=== PATIENT | female | born 1970 | race Caucasian/White ===

== ENCOUNTER 2017-08-07 11:52 | Emergency (ER) | payer BC, OTHER ==
[~2017-08-07] VITALS: Ht 162.6 cm; Wt 77.0 kg
[2017-08-07 11:57] VITALS: BP 108/59; PULSE 78; RESP 18; TEMP 97.8; O2SAT 99
--- NOTE | 2017-08-07 12:25 | PD ---
HPI Chief Complaint: Medical Aide Problem/Complaint Time Seen by Provider: 12:06 Travel History International Travel<30 days: No Contact w/Intl Traveler<30days: No Traveled to known affect area: No History of Present Illness HPI 47yo F with PMH of uterine fibroid, nephrolithiasis presents to the ED with c/o pain for 3 days. Said pain radiates from back to lower abdomen and is cramping and feels like contractions. Said she is on day 3 of her menstrual period and has been having worsening pain during menstruation for the last year. Associated with nausea. No exacerbating or alleviating factors. Denies any fever, chest pain, sob, dysuria, vaginal discharge. Said she had ultrasound many years ago that showed a fibroid but has not had imaging for this in the last year. Pt had CT of her kidneys last week to evaluate for kidney stone and everything was fine. Said this does not feel like her kidney stone. PFSH Past Medical History ?: Not Social History Tobacco Use: No Allergies-Medications (Allergen,Severity, Reaction): Coded Allergies: iodine (Verified Allergy, Severe, hives, 08/07/17) peanut (Verified Allergy, Severe, hives, 08/07/17) Reported Meds & Prescriptions Reported Meds & Active Scripts Active Naproxen 250 Mg Tab 250 Mg PO BID 14 Days Reported Cabergoline 0.5 Mg Tab 0.25 Mg PO 2XWEEK Topiramate 200 Mg Tab 200 Mg PO DAILY Review of Systems Except as stated in HPI: all other systems reviewed are Neg Physical Exam Narrative GENERAL: 47yo F in moderate distress. SKIN: Focused skin assessment warm/dry. HEAD: Atraumatic. Normocephalic. EYES: Pupils equal and round. No scleral icterus. No injection or drainage. CARDIOVASCULAR: Regular rate and rhythm. No murmur appreciated. RESPIRATORY: No accessory muscle use. Clear to auscultation. Breath sounds equal bilaterally. GASTROINTESTINAL: Abdomen soft, non-tender, nondistended. No rebound tenderness or guarding. BACK: No midline ttp thoracic or lumbar spine. CVA tenderness bilaterally. MUSCULOSKELETAL: No obvious deformities. No clubbing. No cyanosis. No edema. NEUROLOGICAL: Awake and alert. No obvious cranial nerve deficits. Motor grossly within normal limits. Normal speech. PSYCHIATRIC: Appropriate mood and affect; insight and judgment normal. Data Data Last Documented VS Vital Signs Date Time Temp Pulse Resp B/P (MAP) Pulse Ox O2 Delivery O2 Flow Rate FiO2 08/07/17 15:39 69 16 102/58 (73) 98 08/07/17 11:57 97.8 Orders Orders Complete Blood Count With Diff (08/07/17 12:18) Comprehensive Metabolic Panel (08/07/17 12:18) Urinalysis - C+S If Indicated (08/07/17 12:18) Ed Urine Pregnancytest Poc (08/07/17 12:18) Ketorolac Inj (Toradol Inj) (08/07/17 12:30) Ondansetron Inj (Zofran Inj) (08/07/17 12:30) Us Pelvis Comp W Dop Transvag (08/07/17 ) Ed Discharge Order (08/07/17 14:53) Labs Laboratory Tests Test 08/07/17 12:45 White Blood Count 4.3 TH/MM3 Red Blood Count 4.42 MIL/MM3 Hemoglobin 13.6 GM/DL Hematocrit 40.9 % Mean Corpuscular Volume 92.5 FL Mean Corpuscular Hemoglobin 30.8 PG Mean Corpuscular Hemoglobin Concent 33.3 % Red Cell Distribution Width 14.8 % Platelet Count 174 TH/MM3 Mean Platelet Volume 10.4 FL Neutrophils (%) (Auto) 54.1 % Lymphocytes (%) (Auto) 29.7 % Monocytes (%) (Auto) 12.4 % Eosinophils (%) (Auto) 3.2 % Basophils (%) (Auto) 0.6 % Neutrophils # (Auto) 2.4 TH/MM3 Lymphocytes # (Auto) 1.3 TH/MM3 Monocytes # (Auto) 0.5 TH/MM3 Eosinophils # (Auto) 0.1 TH/MM3 Basophils # (Auto) 0.0 TH/MM3 CBC Comment DIFF FINAL Differential Comment Urine Color YELLOW Urine Turbidity CLEAR Urine pH 6.0 Urine Specific [place] 1.010 Urine Protein NEG mg/dL Urine Glucose (UA) NEG mg/dL Urine Ketones NEG mg/dL Urine Occult Blood LARGE Urine Nitrite NEG Urine Bilirubin NEG Urine Urobilinogen 0.2 MG/DL Urine Leukocyte Esterase NEG Urine RBC INNUM /hpf Urine WBC 3-5 /hpf Urine Squamous Epithelial Cells 6-8 /hpf Urine Bacteria OCC /hpf Urine Mucus FEW /lpf Microscopic Urinalysis Comment CULT NOT INDICATED Blood Urea Nitrogen 13 MG/DL Creatinine 0.75 MG/DL Random Glucose 84 MG/DL Total Protein 7.1 GM/DL Albumin 3.4 GM/DL Calcium Level 8.5 MG/DL Alkaline Phosphatase 47 U/L Aspartate Amino Transf (AST/SGOT) 24 U/L Alanine Aminotransferase (ALT/SGPT) 53 U/L Total Bilirubin LESS THAN 0.1 MG/DL Sodium Level 140 MEQ/L Potassium Level 3.5 MEQ/L Chloride Level 109 MEQ/L Carbon Dioxide Level 23.8 MEQ/L Anion Gap 7 MEQ/L Estimat Glomerular Filtration Rate 82 ML/MIN MDM Medical Decision Making Medical Screen Exam Complete: Yes Emergency Medical Condition: Yes Differential Diagnosis Menstrual cramps vs. nephrolithiasis vs. uterine fibroid vs. ovarian cysts vs. musculoskeletal pain vs. pyelonephritis Narrative Course 47yo F here with cramping pain that feels like contractions during her menstrual period. No tenderness on abdomen on exam but pt said it is inside. Pt just had a recent CT last week so feel that US pelvis would provide us with more information regarding etiology of this pain. Labs reviewed, no leukocytosis. H/H normal. CMP unremarkable. Urine negative. UA showed large blood. Pt is on her menstrual period. WBC 3-5. Culture not indicated. Pt given toradol and reevaluated at bedside. Said pain has improved. US pelvic showed small 1.2cm fundal uterine leiomyoma. Otherwise unremarkable. pelvic ultrasound. Pt instructed to follow up with HEADER SETUP OPERATOR. Return precautions given. Diagnosis Primary Impression: Uterine fibroid Qualified Codes: D25.9 - Leiomyoma of uterus, unspecified Patient Instructions: General Instructions Departure Forms: Tests/Procedures Additional Instructions: Please follow up with warehouse distribution manager as soon as you can. Return to the ED if symptoms worsen. Med/Other Pt SpecificInfo: Prescription(s) given Scripts Naproxen (Naproxen) 250 Mg Tab 250 MG PO BID for 14 Days, #28 TAB 0 Refills Prov: Masha Geiger 08/07/17 Disposition: 01 DISCHARGE HOME Condition: Stable GeigerMasha escoto Aug 07, 2017 12:25
[2017-08-07] MEDS ORDERED: KETOROLAC TROMETHAMINE 30 MG/ML (IVP) VIAL IV PUSH ONE (12:30)
[2017-08-07] MEDS ORDERED: ONDANSETRON HCL 4 MG/2 ML VIAL IV PUSH ONE (12:30)
[2017-08-07] MEDS ORDERED: CABE0.5T PO (12:59)
[2017-08-07] MEDS ORDERED: TOPI200T7 PO (12:59)
[2017-08-07 13:11] LABS: AUTOMATED NEUTROPHIL # 2.4 TH/MM3 (1.8-7.7); BASOPHIL % 0.6 % (0.0-2.0); EOSINOPHIL # 0.1 TH/MM3 (0-0.4); EOSINOPHIL % 3.2 % (0.0-4.0); HEMATOCRIT 40.9 % (35.0-46.0); HEMOGLOBIN 13.6 GM/DL (11.6-15.3); LYMPH % 29.7 % (9.0-44.0); LYMPHOCYTE # 1.3 TH/MM3 (1.0-4.8); MEAN CELL VOLUME 92.5 FL (80.0-100.0); MEAN CORPUSCULAR HEMOGLOBIN 30.8 PG (27.0-34.0); MEAN CORPUSCULAR HGB CONC 33.3 % (32.0-36.0); MEAN PLATELET VOLUME 10.4 FL (7.0-11.0); MONO % 12.4 % (0.0-8.0); MONOCYTE # 0.5 TH/MM3 (0-0.9); NEUT % 54.1 % (16.0-70.0); PLATELET COUNT 174 TH/MM3 (150-450); RED BLOOD COUNT 4.42 MIL/MM3 (4.00-5.30); RED CELL DISTRIBUTION WIDTH 14.8 % (11.6-17.2); WHITE BLOOD COUNT 4.3 TH/MM3 (4.0-11.0)
[2017-08-07 13:16] LABS: BILIRUBIN, URINE NEG (NEG); BLOOD, URINE LARGE (NEG); CHLORIDE 109 MEQ/L (98-107); GLUCOSE,URINE NEG (NEG); KETONE, URINE NEG (NEG); NITRITE,URINE NEG (NEG); SODIUM (NA) 140 MEQ/L (136-145); URINE COLOR YELLOW (YELLW/STRAW); URINE LEUKOCYTE ESTERASE NEG (NEG)
[2017-08-07 13:19] LABS: CALCIUM 8.5 MG/DL (8.5-10.1)
[2017-08-07 13:20] LABS: ALBUMIN 3.4 GM/DL (3.4-5.0); BICARBONATE 23.8 MEQ/L (21.0-32.0); BLOOD UREA NITROGEN 13 MG/DL (7-18); GLUCOSE,RANDOM 84 MG/DL (74-106)
[2017-08-07 13:22] LABS: BACTERIA, URINE OCC /hpf; MUCUS URINE FEW /lpf (OCC); RBC, URINE INNUM /hpf (0-3)
[2017-08-07 13:23] LABS: ALT (GPT) 53 U/L (10-53); AST (GOT) 24 U/L (15-37); CREATININE 0.75 MG/DL (0.50-1.00); GLOMERULAR FILTRATION RATE 82 ML/MIN (>89)
[2017-08-07 13:24] LABS: TOTAL BILIRUBIN ADULT LESS THAN 0.1 MG/DL (0.2-1.0); TOTAL PROTEIN 7.1 GM/DL (6.4-8.2)
[2017-08-07 13:26] LABS: ALKALINE PHOSPHATASE 47 U/L (45-117)
[2017-08-07 13:44] VITALS: BP 99/73
--- NOTE | 2017-08-07 14:41 | RADRPT ---
EXAM DATE/TIME: 08/07/2017 12:59 [facility] COMPARISON: No previous studies available for comparison. EXTERNAL COMPARISON : [facility], CT ABDOMEN & PELVIS W/O CONTRAST, July 24, 2017, June 02, 2017. INDICATIONS : Pelvic pain during menstruation, history of fibroids. MEDICAL HISTORY : Kidney stones. SURGICAL HISTORY : section. ENCOUNTER: Initial ACUITY: 3 days PAIN SCORE: 10/10 LOCATION: Bilateral pelvis MEASUREMENTS: UTERUS: 7.4 x 5.4 x 4.0 cm ENDOMETRIAL STRIPE: 4 mm RIGHT OVARY: 3.0 x 1.7 x 1.4 cm LEFT OVARY: 3.4 x 1.5 x 1.5 cm FINDINGS: UTERUS: 1.2 x 1.3 x 1.2 cm hypoechoic solid myometrial mass near the uterine fundus. RIGHT OVARY: Ovary contains no mass or significant cystic lesion. LEFT OVARY: Ovary contains no mass or significant cystic lesion. MISCELLANEOUS: No free fluid. CONCLUSION: 1. Small 1.2 cm fundal uterine leiomyoma. 2. Otherwise, unremarkable pelvic ultrasound exam. Nakul Porras MD on August 07, 2017 at 14:33 Board Certified Radiologist. This report was verified electronically.
[2017-08-07 14:42] VITALS: RESP 16
[2017-08-07] MEDS ORDERED: NAPR250T4 PO (14:52)
[2017-08-07 15:39] VITALS: BP 102/58
== END 2017-08-07 15:42 | disposition home or self-care (01) ==
LOC: PHED 11:52
DX: D25.9 Leiomyoma of uterus, unspecified (principal); R11.0 Nausea
CPT/HCPCS: 76830; 76856; 80053; 81001; 84703; 85025; 93975; 96374; 96375; 99285; J1885; J2405